=== PATIENT | female | born 1990 | race Two or more races ===

== ENCOUNTER 2024-03-29 09:27 | Outpatient (REF) | payer OTHER, SELFPAY ==
[2024-03-29 10:09] LABS: MANUAL DIFF FLAG NO
[2024-03-29 10:12] LABS: Basophils Percent Auto 0.3 % (0-2); Eosinophils Absolute Auto 0.1 X10*3/uL (0.0-0.4); Eosinophils Percent Auto 1.6 % (0-4); Hemoglobin 13.3 g/dl (12.0-16.0); Imm Gran Abs Auto 0.02 X10*3/uL (0.00-0.03); Imm Gran Pct Auto 0.3 % (0.0-0.4); Lymphocytes Absolute Auto 2.2 X10*3/uL (1.2-4.9); Lymphocytes Percent Auto 28.4 % (20-40); Mean Corpuscular Volume 91.3 fL (80.0-98.0); Mean Platelet Volume 9.2 fL (9.4-12.3); Monocytes Absolute Auto 0.5 X10*3/uL (0.1-1.2); Monocytes Percent Auto 6.2 % (2-11); Neutrophils Absolute Auto 4.8 x10*3/uL (2.0-8.3); Neutrophils Percent Auto 63.2 % (45-73); Platelet Count 276 X10*3/uL (160-400); Red Blood Count 4.16 X10*6/uL (4.20-5.50); Red Cell Distribution Width 11.8 % (11.0-16.0); White Blood Count 7.6 X10*3/uL (4.8-10.8)
[2024-03-29 10:38] LABS: B Type Natriuretic Peptide < 10 pg/mL (<100)
[2024-03-29 10:50] LABS: Alanine Aminotransferase 9 U/L (0-31); Albumin Level 4.5 g/dL (3.5-5.0); Alkaline Phosphatase 49 U/L (39-117); Anion Gap 12 (12-20); Aspartate Amino Transferase 13 U/L (5-31); Bilirubin Total 0.6 mg/dL (0.0-1.0); Blood Urea Nitrogen 8 mg/dL (9-16); C Reactive Protein < 0.04 mg/dL (< or = 0.50); Calcium 9.6 mg/dL (8.4-10.2); Carbon Dioxide 25 mmol/L (22-29); Chloride 107 mmol/L (96-108); Cholesterol 158 mg/dL (<200); Estimated Glomerular Filt Rate > 60; Glucose Fasting 91 mg/dL (60-99); HDL Cholesterol 47 mg/dL (>40); Iron 129 mcg/dL (30-160); LDL Cholesterol Calculated 103 mg/dL (<100); Magnesium 2.1 mg/dL (1.6-2.6); Percent Iron Saturation 45 % (15-50); Phosphorus 3.3 mg/dL (2.7-4.5); Potassium 4.1 mmol/L (3.3-5.1); Sodium 140 mmol/L (135-145); Total Iron Binding Capacity 289 mcg/dL (228-428); Total Protein 7.3 g/dL (6.5-8.0); Triglycerides 41 mg/dL (<150); Unsaturated Iron Binding 160 ug/dL
[2024-03-29 10:56] LABS: Erythrocyte Sedimentation Rate 7 MM/HR (0-20)
[2024-03-29 10:59] LABS: Ferritin 51 ng/mL (10-122); Free T4 (Free Thyroxine) 0.89 ng/dL (0.71-1.85); Vitamin D 25-OH Total 17.3 ng/mL (>30)
[2024-03-29 11:04] LABS: Vitamin B12 483 pg/mL (200-900)
[2024-03-29 13:25] LABS: Syphilis Screen Nonreactive (Nonreactive)
[2024-03-29 13:37] LABS: HBS Num1 120.16 mIU/mL (0-7.99); HBc Num1 0.27 S/CO (0.00-0.79); HBsAGNum1 0.34 S/CO (0.00-0.99); HIV AB/AG Nonreactive (Nonreactive); HIV Num 1 0.05 S/CO (0.00-0.99); Hepatitis B Core Antibody Nonreactive (Nonreactive); Hepatitis B Surface Antigen Negative (Negative); ~Hepatitis B Surface Antibody REACTIVE (Nonreactive); ~Hepatitis C Antibody Nonreactive (Nonreactive)
[2024-03-30 10:23] LABS: Triiodothyronine T3 Total 101 ng/dL (76-181)
[2024-03-30 18:52] LABS: Homocysteine 6.8 umol/L (<10.4)
[2024-04-02 14:28] LABS: Vitamin B1 14 nmol/L (8-30)
[2024-04-02 17:18] LABS: Vitamin B6 15.7 ng/mL (2.1-21.7)
[2024-04-05 15:08] LABS: Thyroid Stimulating Immunoglob <89 % baseline (<140)
== END 2024-03-29 09:28 | disposition home or self-care (01) ==
LOC: HO.LAB 09:27
PROVIDERS: Visit Provider Psychiatry & Neurology Psychiatry
DX: F31.9 Bipolar disorder, unspecified (principal); R13.10 Dysphagia, unspecified; R06.00 Dyspnea, unspecified
CPT/HCPCS: 80053; 80061; 82306; 82550; 82607; 82728; 82746; 83090; 83540; 83735; 83880; 84100; 84207; 84425; 84439; 84445; 84480; 85025; 85652; 86140; 86704; 86706; 86780; 86803; 87340; 87389

== ENCOUNTER 2024-04-07 09:00 | Outpatient (RCR) | payer OTHER, SELFPAY ==
[2024-03-25 09:46] VITALS: BP 104/78; PULSE 87; TEMP 37.4
[2024-03-25 09:48] VITALS: BMI 20.8
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
--- NOTE | 2024-03-25 15:08 | HO.PHP ---
Pt's case has been opened and reviewed in treatment team.
--- NOTE | 2024-03-26 11:10 | P.HPPSP_ITS ---
HPI Date of Service: 03/26/24 Chief Complaint: anxiety Sources of Information: patient interviewed, chart reviewed and crisis/core team assessment reviewed HPI Narrative: Patient is a 33 yo single female who was referred to PHP from [facility] crisis after reporting worsening depression, anxiety, mood swings and dissociative symptoms. I believe I had a hypomanic episode 2 weeks ago . She has been experiencing mood swings with intense emotions and behavioral dysregulation, impulsivity, it was getting too strong for me to handle. I told him (therapist) I need to get in control or I will spiral . She has had transient feeling of helplessness or hopelessness, denies wish to but has been engaging in impulsive risk-taking, walked in into traffic without clear intention. Sleep is disrupted, there are periods of little sleep/insomnia pasting a couple of days. poor appetite. Energy erratic. I'm not a sexually active person but there was an incident, then spiralling 3-4 days, was really out of character also was shoplisting. not like me . Past Psychiatric History: No IPLOC, PHP, respite or detox admissions Denies any hx of suicide attempts although has been recently engaging in risky behaviors Lately having impulses toward self harm Says she was diagnosed w ASD in [place] at age 29 2nd opinion at age 30 dx with ASD and ADHD Therapist: Jacobo Kaur Psychiatrist: none PCP: David Parks MD Previous med trials: Wellbutrin XL was bumped up to 300 mg CURRENT MEDICATIONS: Wellbutrin XL 150 mg qam [facility] Medical History (Updated 04/05/24 @ 00:06 by Robyn Nowak MD) History of head injury Labial cyst History of seizures as a child Anemia Asthma Autism Family History: Mention of mother with ADHD, father with possible ASD Social History: Born in [place], moved to [facility] at age 8. Parents Graduated in 2008 (repeated 3 or 4th grade) Moved to [place] to start [facility] [employer] 2018 Moved to [facility] Jul 2023 Mom in the area Diagnostics Vital Signs (24Hr): BMI result Body Mass Index 0.2 Meds/Allergies Allergies Allergies Allergy/AdvReac Type Severity Reaction Status Date / Time coconut Allergy Anaphylaxis Verified 03/25/24 09:45 lamotrigine [From Lamictal] Allergy Blisters/Ra Verified 04/26/24 19:23 Mental Status Exam Mental Status Exam Narrative: Alert, oriented, in no acute distress. Calm, cooperative, engaged. No tics, tremors, abnormal movements noted. Eye contact maintained. Mood anxious, labile, affect bright, elevated, some lability, but no irritability noted, mood congruent. Speech normal. Thought process linear, coherent. Thought content related to stressors, denies any hopelessness or SI. Denies any aggressive ideation or HI. No paranoia or delusional content elicited. No evidence of psychosis. Insight and judgment - fair but adequate. Assessment & Plan Assessment & Plan (1) Bipolar disorder, unspecified: Status: Acute Code(s): F31.9 - Bipolar disorder, unspecified (2) MARIN (generalized anxiety disorder): Status: Acute Code(s): F41.1 - Generalized anxiety disorder (3) History of autism spectrum disorder: Status: Acute Code(s): F84.0 - Autistic disorder Plan Admit to [facility] VS reviewed: mona, BP 104/78;?87 bpm start Lamictal 25 mg qd, increase by 25 mg/d q 2 weeks until 100 mg/d start Seroquel 25-50-75 mg qhs, and next week may start 12.5-25 mg qd prn sleep for now will continue Wellbutrin XL 150 mg qam as it does not appear to be causing considerable activation (and per patient mood declines quickly off of WB - she is aware to hold off taking if overactivation/hypomania recurs) denies any other regular medications? Routine lab work ordered EKG, routine for baseline QTc for medication considerations UDS as indicated [facility] reviewed Continue to monitor as per protocol Patient educated on: diagnosis and medication risk/benefits Reason for continued partial hosp. stay Substantial Risk for: inability to function, rapid decompensation and med/psych decompensation Certification I certify that partial hospital treatment is medically necessary due to the symptoms and problems resulting from the patient's mental illness and the failure to treat the patient at the partial hospital level of care would likely result in the patient requiring inpatient psychiatric care which could not be prevented at a less intensive level of care. Time Spent With Patient Time: Total time managing care of this patient today __60__ minutes.
[2024-03-29 09:50] VITALS: BP 122/82; PULSE 90; RESP 18; TEMP 36.8
--- NOTE | 2024-03-29 15:23 | PC.NURSE ---
Hali was brought in by [facility] staff after she had gone down to lab to get blood drawn. Per staff Hali fainted, outpatient response team called to lab. She reported that she had not eaten anything since 6pm the night before. VS obtained, Hali was given two apple juices, nature [employer], she denied feeling dizzy, denied pain. Dr. Nowak notified.
--- NOTE | 2024-04-02 21:39 | P.PNPSP_ITS ---
Subjective Subjective Date of Service: 04/02/24 Reason For Visit: anxiety Interim History: Met for follow-up with patient, her mother and Lithuanian-speaking language interpreter. Patient's mother was a nurse in [place]. She wanted to meet with bond underwriter to review medications. We reviewed treatment regime, rationale for medications, potential side effects to look out for and indications for PRN dosing. Patient reports feeling there has been a big improvement in her mental health and mood stability and anxiety. She especially notes she is sleeping well for the first time (at lsat 5 or 6 hrs) and her mother also confirms that she sees a dramatic improvement in her daughter's stability, specifically noting that she is less irritable, less impulsive and more logical and agreeable. There was some contention around Wellbutrin XL as patient had had difficulty tolerating the medication prior to admission, as it was felt to interfere with sleep however when she withheld the medication for so many days she would get increasingly depressed. Her mother has been splitting tabs which causes her a lot of GI upset and physical side effects. Presently she is sleeping much better with Seroquel. Irritability is under control. She did notice some RLS with initially increasing dose of Seroquel to 50 mg but is getting better. Denies any agitation, but experiencing GI effects from 1/2 tablet of WB XL 150 mg. For now will continue Wellbutrin XL 150 mg qam at whole tablet, as it does not appear to be causing considerable activation especially since starting Seroquel. As per patient, mood declines quickly off of WB. She is aware to hold off taking WB if overactivation/hypomania recurs). Continue Seroquel and Lamictal. Medication Compliance: Yes Side effects from medications: Yes (as noted above RLS/?akithisia from SGA, improving. GI sx from cut WB tab ) Attending Groups: Yes Review of Systems Acute medical concerns: No Mental Status Exam Mental Status Exam Narrative: Alert, oriented, in no acute distress. Calm, cooperative, engaged. No tics, tremors, abnormal movements noted. Eye contact maintained. Mood anxious, less labile, affect bright, elevated but no irritability or lability noted, mood congruent. Speech normal. Thought process linear, coherent. Thought content related to stressors, denies any hopelessness or SI. Denies any aggressive ideation or HI. No paranoia or delusional content elicited. No evidence of psychosis. Insight and judgment - fair but adequate. Diagnostics Vital Signs (24Hr): BMI result Body Mass Index 0.2 Assessment & Plan Assessment & Plan (1) Bipolar disorder, unspecified: Status: Acute Code(s): F31.9 - Bipolar disorder, unspecified (2) MARIN (generalized anxiety disorder): Status: Acute Code(s): F41.1 - Generalized anxiety disorder (3) Pervasive developmental disorder: Status: Acute Code(s): F84.9 - Pervasive developmental disorder, unspecified Assessment and Plan: Hx of Autism Spectrum Disorder r/o ADHD combined type (4) Vitamin D insufficiency: Status: Acute Code(s): E55.9 - Vitamin D deficiency, unspecified Plan continue titration of Lamictal, currently at 25 mg qd (increase by 25 mg/d q 2 weeks until 100 mg/d) continue Seroquel 25 mg qhs, with repeat if needed (will eventually transition Seroquel to PRN basis once Lamictal is more therapeutic) may take Seroquel 6.25-12.5 mg qd prn agitation, sleep continue Wellbutrin XL 150 mg qam for now (patient aware to monitor for overactivation/hypomania sx), will plan to taper WB if indicated, although rx has been helpful with depression in the past, and perhaps addressing some of the ADHD sx - perhaps once Lamictal is therapeutic patient may not need WB for depression start omega 3 fish oil 1 capsule daily (for mood disorder, adhd) start vitamin D2 75063 IU q weekly x 14 weeks for vitamin D deficiency (heading into Fall/Winter) Routine lab work reviewed - pending results for ?TSH, TSI EKG, routine for baseline QTc for medication considerations UDS as indicated Continue to monitor Patient educated on: diagnosis and medication risk/benefits Informed Consent: understands Reason for contiued partial hosp. stay Substantial Risk for: rapid decompensation and med/psych decompensation Certification I certify that partial hospital treatment is medically necessary due to the symptoms and problems resulting from the patient's mental illness and the failure to treat the patient at the partial hospital level of care would likely result in the patient requiring inpatient psychiatric care which could not be prevented at a less intensive level of care. Total time managing care of this patient today _60___ minutes. Discharge Plan Discharge Attending provider: Robyn Nowak Additional Instructions: Hali has an intake appointment scheduled through [facility] on April 08, 2024 at 10 AM with Victoria Garcia at [address] [place] [address]. Hali has a med provider appointment scheduled for May 19, 2024 with Alisa Mcdaniels Via telehealth. Hali has an OP therapy appointment scheduled on April 12, 2024 at 10 AM with Jacobo Kaur. Medications: New fish oil-dha-epa 1,200-144-216 mg capsule 1 cap PO DAILY Qty: 30 1RF ergocalciferol (vitamin D2) [Vitamin D2] 1,250 mcg (50,000 unit) capsule 1,250 mcg PO QWEEK Qty: 14 0RF Rx Instructions: as directed WEEKLY Mag Glycinate 100 mg tablet 200 mg PO DAILY Qty: 60 0RF quetiapine 50 mg tablet 50 mg PO BID PRN (Reason: sleep, agitation) Qty: 30 0RF lamotrigine 25 mg tablet See Rx Instructions .ROUTE .COMPLEX Qty: 90 0RF Rx Instructions: take 2 tablets po daily for 2 weeks then increase to 3 tablets po daily lamotrigine 100 mg tablet 100 mg PO DAILY Qty: 30 0RF Rx Instructions: start 100 mg tablets after completing 75 mg qd x 2 weeks bupropion HCl [Wellbutrin SR] 100 mg tablet sustained-release 12 hr 100 mg PO QAM Qty: 30 0RF quetiapine 25 mg tablet 25 mg PO BID Qty: 60 0RF Discontinued bupropion HCl [Wellbutrin XL] 150 mg Tablet Extended Release 24 Hr 150 mg PO QAM Stand Alone Forms: Patient Portal Discharge page Patient Education: Bipolar Disorder (ED), Vitamin D Deficiency (ED) Print Language: American
--- NOTE | 2024-04-05 11:20 | HO.PHP ---
[facility] staff member met with Hali after group one due to her making concerning comments around having thoughts around wanting to harm her sisters boyfriend. [facility] staff member followed up with her to see if she has a plan or intent to act on those thoughts. Hali mentioned that she does not have a plan or intent to act on those thoughts because she is able to recognize the negative consequences that would come with that, in which she disclosed she does not want to harm herself or get in trouble with the law. [facility] staff member was receptive and explored ways to cope with the negative thought that she is ruminating on. Hali is going to work on what she can control in this situation and what she can't, implementing coping skills such as crafts, reaching out to supports, writing a letter. Hali disclosed that processing out loud is an effective tool for her as well. Hali was able to return to group.
--- NOTE | 2024-04-06 12:39 | HO.PHP ---
[facility] staff member met with Hali due to her stating she would like to speak one on one around how to manage something around eating. Hali disclosed that she struggles with recognizing when she is hungry and her therapist encouraged her to ask a staff member what she can do to help with eating meals. [facility] staff member suggested setting alarms or creating a schedule, where she is eating around the same time every day. [facility] staff member noted that overtime her body will be able to recognize that it is time to eat. Hali was receptive. Hali then asked how can she inform her mother that she is providing her with too much food. [facility] staff member provided Hali with communication prompts around how to better communicate her needs. Hali was in agreement.
--- NOTE | 2024-04-06 21:44 | P.PNPSP_ITS ---
Subjective Subjective Date of Service: 04/06/24 Reason For Visit: anxiety Interim History: Patient seen for follow-up, anticipating discharge at the end of program tomorrow.? Reports GI symptoms resolved with taking whole tablet of WB XL 150 mg. Is eager to discontinue but for now understands to continue on it until Lamictal at a dose more likely to help with depression. She is aware to hold off taking if she becomes overactivated or hypomanic. She has continued on 50 mg Seroquel and RLS she says is pretty much resolved. I worry about further increases in Seroquel not being tolerated as well. She could try taking Benadryl as needed for sleep in addition to Seroquel 50 mg. Reports no acute issues or concerns. Medication compliant, medications well- tolerated. Denies any adverse effects.? Mood is stable.? Denies any hopelessness or SI. Denies thoughts of harming self or others at this time. Denies any aggressive ideation or HI. Denies any paranoia or AH or VH. Sleep, appetite, energy stable. Medication Compliance: Yes Side effects from medications: No Attending Groups: Yes Review of Systems Acute medical concerns: No Mental Status Exam Mental Status Exam Narrative: Alert, oriented, in no acute distress. Calm, cooperative. Mood stable, affect appropriate. Speech normal. Thought process linear, coherent, more goal- directed. Thought content related to stressors, future-oriented, denies any helplessness, hopelessness or SI.? No aggressive ideation or HI. No paranoia or delusional content elicited. No evidence of psychosis. Insight and judgment fair-good. Diagnostics Vital Signs (24Hr): BMI result Body Mass Index 0.2 Assessment & Plan Assessment & Plan (1) Bipolar disorder, unspecified: Status: Acute Code(s): F31.9 - Bipolar disorder, unspecified (2) Pervasive developmental disorder: Status: Acute Code(s): F84.9 - Pervasive developmental disorder, unspecified Assessment and Plan: Hx of Autism Spectrum Disorder r/o ADHD combined type (3) Vitamin D insufficiency: Status: Acute Code(s): E55.9 - Vitamin D deficiency, unspecified Plan Discharge from [facility] start magnesium glycinate 200-400 mg qd continue Seroquel at 50 mg qhs may take Seroquel 12.5-25 mg qd-bid PRN agitation/anxiety/ impulsivity/overactivation (will eventually transition Seroquel to PRN basis once Lamictal is more therapeutic) continue titration of Lamictal, currently at 25 mg qd (increase by 25 mg/d q 2 weeks until 100 mg/d) continue Wellbutrin XL 150 mg qam for now (patient aware to monitor for overactivation/hypomania sx), will plan to taper if indicated, although rx has been helpful with depression in the past, and perhaps addressing some of the ADHD sx continue omega 3 fish oil 1 capsule daily (for mood disorder, adhd) continue vitamin D2 32241 IU q weekly x 14 weeks for vitamin D deficiency (heading into Fall/Winter) Routine lab work reviewed - pending results for ?TSH, TSI EKG, routine for baseline QTc for medication considerations UDS as indicated Continue to monitor Patient educated on: diagnosis, medication risk/benefits and medical condition Informed Consent: understands Reason for contiued partial hosp. stay Substantial Risk for: stable for discharge Certification I certify that partial hospital treatment is medically necessary due to the symptoms and problems resulting from the patient's mental illness and the failure to treat the patient at the partial hospital level of care would likely result in the patient requiring inpatient psychiatric care which could not be prevented at a less intensive level of care. Total time managing care of this patient today __30__ minutes. Discharge Plan Discharge Attending provider: Robyn Nowak Additional Instructions: Hali has an intake appointment scheduled through [facility] on April 08, 2024 at 10 AM with Victoria Garcia at [address] [place] [address]. Hali has a med provider appointment scheduled for May 19, 2024 with Alisa Mcdaniels Via telehealth. Hali has an OP therapy appointment scheduled on April 12, 2024 at 10 AM with Jacobo Kaur. Medications: New fish oil-dha-epa 1,200-144-216 mg capsule 1 cap PO DAILY Qty: 30 1RF ergocalciferol (vitamin D2) [Vitamin D2] 1,250 mcg (50,000 unit) capsule 1,250 mcg PO QWEEK Qty: 14 0RF Rx Instructions: as directed WEEKLY Mag Glycinate 100 mg tablet 200 mg PO DAILY Qty: 60 0RF quetiapine 50 mg tablet 50 mg PO BID PRN (Reason: sleep, agitation) Qty: 30 0RF lamotrigine 25 mg tablet See Rx Instructions .ROUTE .COMPLEX Qty: 90 0RF Rx Instructions: take 2 tablets po daily for 2 weeks then increase to 3 tablets po daily lamotrigine 100 mg tablet 100 mg PO DAILY Qty: 30 0RF Rx Instructions: start 100 mg tablets after completing 75 mg qd x 2 weeks bupropion HCl [Wellbutrin SR] 100 mg tablet sustained-release 12 hr 100 mg PO QAM Qty: 30 0RF quetiapine 25 mg tablet 25 mg PO BID Qty: 60 0RF Discontinued bupropion HCl [Wellbutrin XL] 150 mg Tablet Extended Release 24 Hr 150 mg PO QAM Stand Alone Forms: Patient Portal Discharge page Patient Education: Bipolar Disorder (ED), Vitamin D Deficiency (ED) Print Language: Citizen Of [place]
--- NOTE | 2024-04-15 23:56 | PM.EVENT ---
Event Note Date of Service: 04/15/24 Event Note: Spoke with patient who called staff nurse with refill requests. Reports having variable difficulty sleeping. Has tried increasing quetiapine from 25 to 37.5 mg with inconsistent benefit and wanted to speak with this designer/writer about increasing dose to 50 mg. RLS she had been experienced early in treatent with quetiapine which has mostly dissipated. Symptoms may re-emerge upon increasing and to notify provider if any symptoms occur/emerge - dose should be returned if more s/s more noticable than before (or do not resolve quickly). Time Spent With Patient Time: Total time managing care of this patient today __15__ minutes.
--- NOTE | 2024-04-23 12:35 | PC.NURSE ---
Patient called and stated she has blisters in her mouth and rash on her abdomen for the past 2 weeks and she went to urgent care and was told to call her prescriber. I reviewed patient information with Dr. Nowak. I called patient back and told her to stop taking Lamictal per Dr Nowak's instructions as this is what is causing her symptoms. She agreed to stop Lamictal. I also told her she can take Tylenol for pain per Dr Nowak's instructions. In addition patient also aware that Dr. Nowak will be calling her to f/u.
--- NOTE | 2024-04-26 18:15 | PM.EVENT ---
Event Note Date of Service: 04/26/24 Event Note: Spoke with patient due to complaints of lesions in her mouth, concerning for SJS. She was told on Friday to immediately discontinue lamotrigine which had been at 50 mg and followed up with her over the weekend. She was also on Wellbutrin and Seroquel which theroretically could also cause SJS, although considerably less risk than an AED/LMG. She last took lamotrigine on . She was advised to take Tylenol and to gargle gently with warm salt water q few hours as supportive measures. She reports first noticing a mouth ulcer almost 2 weeks ago but did not connect that this could be SJS as she thought she was getting canker sores due to poor oral hygiene and said last week she tried to work on being more diligent with oral care. She has continued on Seroquel 50 mg as well as bupropion SR 100 mg (which was switched from XL 150 mg tabs on the past few weeks). Patient as well as her mother (who was also present for the call) feel she had been doing well on combination of the meds including the WB and Seroquel. She has also noticed a rash on her abdomen and was prescribed hydrocortisone by her provider, but says this was not a new thing for her I've had this type of rash before . However on Friday there was a small area that cropped up between her nose and mouth that is more noticable over the weekend. For the sake of limiting variables, I will have her hold the Wellbutrin SR, and have her come by [facility] on Friday afternoon (Friday is a holiday) so we can check in. For now we will continue on only Seroquel for mood stabilization/sleep and will send refill of 25 mg tabs. We may consider whether restarting Wellbutrin makes sense once the rash has resolved. She has also been advised for now to avoid other medications [place] sulfa/antibiotics and ASA and ibuprofen. Tylenol though also a risk, though more rare occurrence than with NSAIDs. I would advise extreme caution should patient be trialled an other AED in the future, she is also advised to include lamotrigine (AE: SJS) on her Allergy list going forward. She has a follow up with her PCP next week and agrees to do so. Time Spent With Patient Time: Total time managing care of this patient today ____ minutes.
--- NOTE | 2024-04-27 23:59 | HO.PHPPROGNO ---
Subjective Subjective Date of Service: 04/27/24 Reason For Visit: anxiety Diagnostics Vital Signs (24Hr): BMI result Body Mass Index 0.2 Assessment & Plan Certification I certify that partial hospital treatment is medically necessary due to the symptoms and problems resulting from the patient's mental illness and the failure to treat the patient at the partial hospital level of care would likely result in the patient requiring inpatient psychiatric care which could not be prevented at a less intensive level of care. Total time managing care of this patient today ____ minutes. Discharge Plan Discharge Attending provider: Robyn Nowak Additional Instructions: Hali has an intake appointment scheduled through [facility] on April 08, 2024 at 10 AM with Victoria Garcia at [address] [place] [address]. Hali has a med provider appointment scheduled for May 19, 2024 with Alisa Mcdaniels Via telehealth. Hali has an OP therapy appointment scheduled on April 12, 2024 at 10 AM with Jacobo Kaur. Medications: New fish oil-dha-epa 1,200-144-216 mg capsule 1 cap PO DAILY Qty: 30 1RF ergocalciferol (vitamin D2) [Vitamin D2] 1,250 mcg (50,000 unit) capsule 1,250 mcg PO QWEEK Qty: 14 0RF Rx Instructions: as directed WEEKLY Mag Glycinate 100 mg tablet 200 mg PO DAILY Qty: 60 0RF quetiapine 50 mg tablet 50 mg PO BID PRN (Reason: sleep, agitation) Qty: 30 0RF lamotrigine 25 mg tablet See Rx Instructions .ROUTE .COMPLEX Qty: 90 0RF Rx Instructions: take 2 tablets po daily for 2 weeks then increase to 3 tablets po daily lamotrigine 100 mg tablet 100 mg PO DAILY Qty: 30 0RF Rx Instructions: start 100 mg tablets after completing 75 mg qd x 2 weeks bupropion HCl [Wellbutrin SR] 100 mg tablet sustained-release 12 hr 100 mg PO QAM Qty: 30 0RF quetiapine 25 mg tablet 25 mg PO BID Qty: 60 0RF Discontinued bupropion HCl [Wellbutrin XL] 150 mg Tablet Extended Release 24 Hr 150 mg PO QAM Stand Alone Forms: Patient Portal Discharge page Patient Education: Bipolar Disorder (ED), Vitamin D Deficiency (ED) Print Language: Azeri
== END 2024-04-07 23:59 | disposition home or self-care (01) ==
LOC: HO.PHPA 09:00
PROVIDERS: Visit Provider Psychiatry & Neurology Psychiatry
DX: F31.9 Bipolar disorder, unspecified (principal); F41.1 Generalized anxiety disorder; F84.0 Autistic disorder; E55.9 Vitamin D deficiency, unspecified; Z79.899 Other long term (current) drug therapy
CPT/HCPCS: 90791; 90853